=== PATIENT | female | born 1940 | race Caucasian/White ===

== ENCOUNTER → 2019-09-28 | Outpatient (CLI) | payer MEDICARE, BC ==
--- NOTE | 2019-10-05 14:56 | HM ---
HOLTER MONITOR REPORT 24 HOUR HOLTER REPORT: No diary was submitted with this holter. Problem with sinus with a heart rate ranging from 48 to 81 beats per minute with average heart rate of 63 beats per minute. Isolated ventricular ectopy were noted but there was no evidence of any significant runs of ventricular tachycardia. Rare supraventricular ectopy was noted. There was no evidence of any bradyarrhythmia. There was some artifact noted. FINAL IMPRESSION: Predominant sinus rhythm with frequent isolated PVCs but no evidence of any SVT, VT, or bradyarrhythmia. Rare couplets were noted. No symptoms were reported. MMODL / IJN: [id number] /
== END | disposition home or self-care (01) ==
LOC: RADECHMAIN 12:21
PROVIDERS: ATTEND Psychiatry & Neurology Neurology
DX: R55 Syncope and collapse (principal)
CPT/HCPCS: 93225; 93226

== ENCOUNTER → 2022-06-26 | Outpatient (CLI) | payer MEDICARE, BC ==
--- NOTE | 2022-06-26 15:45 | XR ---
EXAMINATION TYPE: XR humerus RT DATE OF EXAM: 06/26/2022 COMPARISON: NONE HISTORY: 82-year-old female pain after fall, initial encounter. W19.XXXA TECHNIQUE: 2 views FINDINGS: Moderate degenerative change at the AC joint. Some sclerosis and irregularity of the greater tuberosi ty suggesting chronic rotator cuff tendinopathy. The shoulder and elbow articulations appear grossly intact. Generalized muscle atrophy. No acute fracture. Osteopenia. IMPRESSION: Generalized muscle atrophy. Osteopenia. AC joint OA and some bony changes of chronic rotator cuff ten dinopathy. No acute osseous abnormality seen.
== END | disposition home or self-care (01) ==
LOC: RADXRMAIN 12:24
PROVIDERS: ATTEND Family Medicine
DX: M62.511 Muscle wasting and atrophy, not elsewhere classified, right shoulder (principal); M19.011 Primary osteoarthritis, right shoulder

== ENCOUNTER → 2022-09-25 | Outpatient (CLI) | payer MEDICARE, BC ==
--- NOTE | 2022-09-25 17:08 | BD ---
EXAMINATION TYPE: Axial Bone Density DATE OF EXAM: 09/25/2022 CLINICAL HISTORY: 82 years year old Female. ICD-10 CODE: M81.0 age related osteoporosis Height: 5 FT 4 IN Weight: 112 FRAX RISK QUESTIONS: Alcohol (3 or more units per day): NO Family History (Parent hip fracture): NO Glucocorticoids (More than 3mos): NO (Ex: prednisone, prednisolone, methylprednisolone, dexamethasone, and hydrocortisone). History of Fracture in Adulthood: YES Secondary Osteoporosis: 1. Type 1 Diabetes: NO 2. Hyperthyroidism: NO 3. Menopause before 45: NO 4. Malnutrition: NO 5. Chronic liver disease: NO Rheumatoid Arthritis: NO Current Tobacco Use: NO RISK FACTORS HISTORY OF: History of Wrist Fracture: LEFT WRIST When: 5-6 YEARS AGO Surgery to Spine/Hip(right/left)/Wrist (right/left): NO Family History of Osteoporosis: NO Active: YES Diet low in dairy products/other sources of calcium: NO Postmenopausal woman: YES Take estrogen and/or progesterone medications: NO Lost more than 2 inches in height since high school: YES Frequent falls: YES Poor Health: GOOD Hyperparathyroidism: NO Adrenal Insufficiency: NO MEDICATIONS: Thyroid Medications: YES Which medication: LEVOTHYROXINE How Long: SEVERAL YEARS Additional Medications: LEVOTHYROXINE, BLOOD PRESSURE MEDS, CHOLESTEROL MEDS, ANXIETY MEDS, SLEEP AID E, Additional History: EXAM MEASUREMENTS: Bone mineral densitometry was performed using the [employer] System. Bone mineral density as measured about the Lumbar spine is: ----- L1-L4(G/cm2): 0.729 T Score Values are as follows: ----- L1: -4.3 ----- L2: -4.2 ----- L3: -3.3 ----- L4: -3.4 ----- L1-L4: -3.8 PREV UNKNOWN Bone mineral density about the R hip (g/cm2): 0.663 Bone mineral density about the L hip (g/cm2): 0.629 T Score values are as follows: -----R Neck: -2.7 -----L Neck: -2.9 -----R Total: -2.8 -----L Total: -2.9 PREV UNKNOWN FRAX%s: The graph provided illustrates a 26.4 % chance for a major osteoporotic fx and a 10.5 % chanc e for the hips probability for fx in 10 years time. IMPRESSION: Osteoporosis (T Score less than -2.5). There is increased fracture risk and therapy is usually indicated based on age. Re-Screen 1-2 years. NOTE: T-SCORE=SD OF THE YOUNG ADULT MEAN.
== END | disposition home or self-care (01) ==
LOC: RADBDWWP 09:22
PROVIDERS: ATTEND Family Medicine
DX: M81.0 Age-related osteoporosis without current pathological fracture (principal)
CPT/HCPCS: 77080